=== PATIENT | female | born 1950 | race Caucasian/White ===

== ENCOUNTER 2016-05-08 18:47 | Emergency (ER) | payer MEDICARE, OTHER ==
[~2016-05-08] VITALS: Ht 157.5 cm; Wt 81.5 kg
[2016-05-08 18:59] VITALS: BP 120/84; PULSE 66; RESP 16; TEMP 98.7; O2SAT 97
--- NOTE | 2016-05-08 19:33 | PD ---
HPI Chief Complaint: Skin Problem Time Seen by Provider: 19:33 Travel History International Travel<30 days: No Contact w/Intl Traveler<30days: No Traveled to known affect area: No History of Present Illness HPI 66-year-old female presents to the ED for evaluation 3 day history of painful sore in the right groin. She presents today because the redness has worsened and spread across her leg. She denies fever or chills. She endorses increased malaise over the last few days. Endorses a "sensation" in the bladder when urinating but does not describe it as pain. She endorses some low back pain following a visit to [facility] with her daughter but states she is otherwise feeling well. She denies fever, chills, abdominal pain, nausea, vomiting. No treatment attempted at home. PFSH Past Medical History Diminished Hearing: No Tetanus Vaccination: > 5 Years Influenza Vaccination: No ?: Not Past Surgical History Abdominal Surgery: Yes (KEELY BY PASS) Cholecystectomy: Yes Endocrine Surgery: Yes (THYROID) Hysterectomy: Yes Other Surgery: Yes (BACK ,BREAST AUGMENTAION, FACE LIFT, TUMMY TUCK ) Social History Alcohol Use: Yes (DINNER DRINK) Tobacco Use: No (QUIT 1998) Substance Use: No Allergies-Medications (Allergen,Severity, Reaction): Coded Allergies: Chlorine (Verified Allergy, Unknown, 05/08/16) Dust (Verified Allergy, Unknown, 05/08/16) Iodine (Verified Allergy, Unknown, Swelling, 05/08/16) Latex (Verified Allergy, Unknown, ITCHING, 05/08/16) Reported Meds & Prescriptions Reported Meds & Active Scripts Active Bactrim DS (Sulfamethoxazole-Trimethoprim) 800-160 Mg Tab 1 Tab PO BID Review of Systems Except as stated in HPI: all other systems reviewed are Neg Physical Exam Narrative GENERAL: Well-nourished, well-developed female appearing younger than her stated age in no acute distress. SKIN: Warm and dry. SKIN: There is an indurated area in the right groin which measures about 3 cm in diameter. It is fluctuant but there is no pointing or drainage. There is a zone of inflammation and lymphatic streaking towards the lateral aspect of the right thigh. NO LAD of the groin. HEAD: Normocephalic. EYES: No scleral icterus. No injection or drainage. NECK: Supple, trachea midline. No JVD or lymphadenopathy. CARDIOVASCULAR: Regular rate and rhythm without murmurs, gallops, or rubs. RESPIRATORY: Breath sounds clear and equal bilaterally. No accessory muscle use. GASTROINTESTINAL: Abdomen soft, non-tender, nondistended. No suprapubic TTP. MUSCULOSKELETAL: No cyanosis, or edema. BACK: Nontender without obvious deformity. No CVA tenderness. Data Data Last Documented VS Vital Signs Date Time Temp Pulse Resp B/P Pulse Ox O2 Delivery O2 Flow Rate FiO2 05/08/16 18:59 98.7 66 16 120/84 97 Orders Urinalysis - C+S If Indicated (05/08/16 19:46) Abscess Culture And Gram Stain (05/08/16 19:46) Lidocai-Epi 1%-1:100,000 Inj (Xylocaine- (05/08/16 20:00) Sulfamet-Trimeth Ds 800-160 Mg (Bactrim (05/08/16 20:45) Labs Laboratory Tests Test 05/08/16 19:45 Urine Color YELLOW Urine Turbidity CLEAR Urine pH 6.0 Urine Specific [place] 1.025 Urine Protein TRACE mg/dL Urine Glucose (UA) NEG mg/dL Urine Ketones TRACE mg/dL Urine Occult Blood NEG Urine Nitrite NEG Urine Bilirubin NEG Urine Leukocyte Esterase NEG Urine RBC 0-3 /hpf Urine WBC 6-8 /hpf Urine Squamous Epithelial > 8 /hpf Cells Urine Bacteria FEW /hpf Urine Mucus MOD /lpf Microscopic Urinalysis Comment CULT NOT INDICATED MDM Medical Decision Making Medical Screen Exam Complete: Yes Emergency Medical Condition: Yes Differential Diagnosis Folliculitis versus abscess versus cellulitis versus UTI versus other Narrative Course 66-year-old female presents to the ED for evaluation 3 day history of painful sore in the right groin. She presents today because the redness has worsened and spread across her leg. She denies fever or chills. She endorses "not feeling 100%" over the last few days. She endorses slight dysuria and low back pain following a visit to [facility] with her daughter but states she is otherwise feeling well. She denies fever, chills, abdominal pain, nausea, vomiting. Vitals reviewed. Physical exam consistent with abscess. I&D was performed. See my procedure note for details. UA reveals trace ketones, 6-8 WBCs, few bacteria. No culture indicated. Patient was prescribed Bactrim DS twice a day 7 days. First dose was administered in the ED. She is instructed to return to the ED in 48 hours for wound recheck and packing removal. She is instructed to utilize [id number] pain medications as needed. She indicated understanding of these instructions and is agreeable with the plan of care. This patient is stable and discharged home. Procedures Procedure Narrative INCISION AND DRAINAGE OF ABSCESS: The area was prepped and was sterilely draped. A subcutaneous wheal of 1% Xylocaine with epinephrine with a total number 3 mL was used to anesthetize the area properly. A number 11 scalpel was used to make a 1-cm incision across the area of the abscess. The abscess was drained, complex loculations were broken down, and irrigated with normal saline. Cultures were obtained. Quarter inch iodoform packing was placed in the wound. Sterile dressing applied. Patient advised to have packing removed in two days. Diagnosis Primary Impression: Abscess of right groin Additional Impression: Urinary tract infection Qualified Code: N30.00 - Acute cystitis without hematuria Referrals: Primary Care Physician Patient Instructions: Abscess Incision and Drainage (ED), General Instructions , Urinary Tract Infection in Women (ED) Additional Instructions: Rest, hydrate. Do not change the dressing unless it becomes wet or soiled until wound recheck in 48 hours. You may bathe normally. Do not submerge the wound. Take the antibiotics as they are prescribed, even if your symptoms resolve during the course of treatment. Utilize [id number] pain medications, as described on the label, as needed. Return to the ED in 48 hours for packing removal and wound recheck. Follow-up with your primary care provider in next week. Return to the ED for any urgent or emergent medical condition. Med/Other Pt SpecificInfo: Prescription(s) given Scripts Sulfamethoxazole-Trimethoprim (Bactrim DS)800-160 Mg Tab1 Tab PO BID #14 TAB Ref 0 Prov:Jose Membreno MD 05/08/16 Disposition: 01 DISCHARGE HOME Condition: Stable Hannah Choe May 08, 2016 19:33
[2016-05-08] MEDS ORDERED: LIDOCAINE 1%/EPINEPHrine 1:100,000 SOLN 20 ML VIAL INFIL ONE (20:00)
[2016-05-08 20:07] LABS: BLOOD, URINE NEG (NEG); GLUCOSE,URINE NEG (NEG); KETONE, URINE TRACE mg/dL (NEG); NITRITE,URINE NEG (NEG)
[2016-05-08 20:17] LABS: URINE COLOR YELLOW (YELLW/STRAW)
[2016-05-08 20:18] LABS: BACTERIA, URINE FEW /hpf; COMMENT (UR) CULT NOT INDICATED; CULTURE IF INDICATED CULT NOT INDICATED; MUCUS URINE MOD /lpf (OCC); RBC, URINE 0-3 /hpf (0-3); SQUAMOUS EPITHELIAL CELL URINE > 8 /hpf (0-5)
[2016-05-08] MEDS ORDERED: BACT800T5 PO (20:44)
[2016-05-08] MEDS ORDERED: SULFAMETHOXAZOLE-TRIMETHOPRIM DS 800-160 MG TAB PO ONE (20:45)
== END 2016-05-08 20:48 | disposition home or self-care (01) ==
LOC: PHEFT 18:47
DX: L02.214 Cutaneous abscess of groin (principal); N39.0 Urinary tract infection, site not specified
CPT/HCPCS: 10061; 81001; 87070; 87185; 87205

== ENCOUNTER 2016-05-11 12:43 | Emergency (ER) | payer MEDICARE, OTHER ==
[~2016-05-11] VITALS: Ht 157.5 cm; Wt 81.0 kg
[~2016-05-11 12:43] MED LIST: BACT800T5 PO
[2016-05-11 12:54] VITALS: BP 105/66; PULSE 74; RESP 18; TEMP 98.8; O2SAT 98
--- NOTE | 2016-05-11 14:55 | PD ---
HPI . right groin abscess, reaction to bactrim Chief Complaint: Wound/Suture/Staple Re-Check Time Seen by Provider: 14:55 Travel History International Travel<30 days: No Contact w/Intl Traveler<30days: No Traveled to known affect area: No History of Present Illness HPI 66-year-old female who was here 2 days ago for a right groin abscess here for wound recheck. Patient reports that the packing fell out and the area is improving. She is however complaining of reaction to Bactrim. She tells me that she is itching all over and she cannot take the medication anymore. Additionally she had a reaction to the adhesive tape and has a small blister in the right groin. She denies any fever or chills. Overall she is doing well since her last visit. She has no other complaints. PFSH Past Medical History Diminished Hearing: No Past Surgical History Abdominal Surgery: Yes (KEELY BY PASS) Cholecystectomy: Yes Endocrine Surgery: Yes (THYROID) Hysterectomy: Yes Other Surgery: Yes (BACK ,BREAST AUGMENTAION, FACE LIFT, TUMMY TUCK ) Social History Alcohol Use: Yes (DINNER DRINK) Tobacco Use: No (QUIT 1998) Substance Use: No Allergies-Medications (Allergen,Severity, Reaction): Coded Allergies: Bactrim (Verified Allergy, Intermediate, Itching, 05/11/16) Chlorine (Verified Allergy, Unknown, 05/11/16) Dust (Verified Allergy, Unknown, 05/11/16) Iodine (Verified Allergy, Unknown, Swelling, 05/11/16) Latex (Verified Allergy, Unknown, ITCHING, 05/11/16) Reported Meds & Prescriptions Reported Meds & Active Scripts Active Clindamycin (Clindamycin HCl) 300 Mg Cap 300 Mg PO TID Bactrim DS (Sulfamethoxazole-Trimethoprim) 800-160 Mg Tab 1 Tab PO BID Review of Systems General / Constitutional: No: Fever Eyes: No: Visual changes HENT: No: Headaches Cardiovascular: No: Chest Pain or Discomfort Respiratory: No: Shortness of Breath Gastrointestinal: No: Abdominal Pain Genitourinary: No: Dysuria Musculoskeletal: No: Pain Skin: Positive Itching, No Rash Neurologic: No: Weakness Psychiatric: No: Depression Endocrine: No: Polydipsia Hematologic/Lymphatic: No: Easy Bruising Physical Exam Narrative GENERAL: AAO x 3, no acute distress, Well-nourished, well-developed patient. SKIN: Warm and dry. No visible rashes or bruising. no visible hives. small blister to right groin and surrounding erythema near tape lines. abscess, healing by secondary intention. No surrounding erythema or edema. No significant purulence or warmth HEAD: Normocephalic and atraumatic. EYES: No scleral icterus. No injection or drainage. ENT: No nasal drainage noted. Mucous membranes pink. Airway patent. NECK: Supple, trachea midline. No JVD. CARDIOVASCULAR: Regular rate and rhythm without murmurs, gallops, or rubs. RESPIRATORY: Breath sounds equal bilaterally. No accessory muscle use. No rhonchi or rales. GASTROINTESTINAL: Abdomen soft, non-tender, nondistended. EXTREMITIES: No cyanosis or edema. BACK: Nontender without obvious deformity. No CVA tenderness. PSYCH: AAO x 3, normal affect. Data Data Last Documented VS Vital Signs Date Time Temp Pulse Resp B/P Pulse Ox O2 Delivery O2 Flow Rate FiO2 05/11/16 12:54 98.8 74 18 105/66 98 MDM Medical Decision Making Medical Screen Exam Complete: Yes Emergency Medical Condition: Yes Medical Record Reviewed: Yes Differential Diagnosis right groin abscess, adverse effect of drug, adhesive reaction Narrative Course 66-year-old female who was here 2 days ago for a right groin abscess here for wound recheck. Patient reports that the packing fell out and the area is improving. She is however complaining of reaction to Bactrim. She tells me that she is itching all over and she cannot take the medication anymore. Additionally she had a reaction to the adhesive tape and has a small blister in the right groin. She denies any fever or chills. Overall she is doing well since her last visit. She has no other complaints. Patient seen and examined. Abscess is healing and does not show any active signs of infection. Wound culture appreciated. normal skin kaden. Due to location and increased likelihood of sweating and bacterial growth: Will change Bactrim to clindamycin. Advise follow-up with primary care provider. Advised daily dressing changes. Area was cleaned and dressed with sterile gauze. Patient verbalized understanding of instructions, questions were answered, and thanked me for their care. I advised them if their condition worsens, please return to the nearest emergency room for further care. Diagnosis Primary Impression: Abscess of right groin Patient Instructions: General Instructions Additional Instructions: [place] for worsening signs of infection which include increased redness, increased warmth, purulent drainage, increased swelling or streaking. Wash the affected area with soap and water daily. Apply antibiotic ointment and clean dressing daily. If any signs of worsening infection, return to the nearest emergency department or follow-up with her primary care provider I recommend follow-up with her primary care provider as these things can have high incidence of recurrence. STOP BACTRIM Med/Other Pt SpecificInfo: Med Stopped Scripts Clindamycin 300 Mg Svd990 Mg PO TID #21 CAP Prov:Drew Gautam MD 05/11/16 Disposition: 01 DISCHARGE HOME Condition: Stable Brittany Malik May 11, 2016 14:55
[2016-05-11] MEDS ORDERED: CLIN1CAP6 PO (15:06)
== END 2016-05-11 15:23 | disposition home or self-care (01) ==
LOC: PHED 12:43 → PHEFT 15:23
DX: L02.214 Cutaneous abscess of groin (principal); T37.0X5A Adverse effect of sulfonamides, initial encounter; T50.995A Adverse effect of other drugs, medicaments and biological substances, initial encounter; Y92.89 Other specified places as the place of occurrence of the external cause
CPT/HCPCS: 99282